=== PATIENT | male | born 1970 | race Caucasian/White ===

== ENCOUNTER 2016-05-21 19:54 | Emergency (ER) | payer OTHER ==
[~2016-05-21] VITALS: Ht 180.3 cm; Wt 105.0 kg
[~2016-05-21 19:54] MED LIST: HYDR-3498 PO; IBUP-1542 PO
[2016-05-21 20:07] VITALS: Ht 180.3 cm; Wt 105.0 kg
[2016-05-21] MEDS ORDERED: AMO500 PO (21:10)
--- NOTE | 2016-05-21 21:13 | ERD ---
ER Documentation Chief Complaint Date/Time DATE: 05/21/16 TIME: 21:11 Chief Complaint left ear pain and headache x 3 days HPI Patient presents with right-sided ear pain that he has had for 1 week. Denies fever. States he feels like the ear is blocked and a fullness. He has not taken any medications. He recently recovered from upper respiratory infection last week so he thought his ears would get better however he continues to have ear pain. No bleeding or drainage from the ear. No cough. ROS All systems reviewed and are negative except as per history of present illness. Medications Home Meds Active Scripts Amoxicillin* (Amoxicillin*) 500 Mg Cap, 500 MG PO BID for 7 Days, CAP Prov:RADHA MCMULLEN PA-C 05/21/16 Ibuprofen* (Motrin*) 600 Mg Tab, 600 MG PO Q6, #30 TAB Prov:LEVON MCCLENDON 05/29/15 Hydrocodone Bit-Acetaminophen* ([place]*) 5-325 Mg Tab, 1 TAB PO Q6 Y for PAIN, # 20 TAB Prov:ARIK LAMAR NP 12/21/14 Ibuprofen* (Motrin*) 600 Mg Tab, 600 MG PO Q6H Y for PAIN AND OR ELEVATED TEMP, #20 Prov:BOAZ WELLS MD 11/02/14 Allergies Allergies: Coded Allergies: No Known Allergy (Unverified , 04/02/15) PMhx/Soc History of Surgery: Yes (hernia repair) Anesthesia Reaction: No Hx Neurological Disorder: No Hx Respiratory Disorders: No Hx Cardiac Disorders: No Hx Psychiatric Problems: No Hx Miscellaneous Medical Probl: No Hx Alcohol Use: No Hx Substance Use: No Hx Tobacco Use: No FmHx Family History: No diabetes Physical Exam Vitals Vital Signs Date Time Temp Pulse Resp B/P Pulse Ox O2 Delivery O2 Flow Rate FiO2 05/21/16 20:07 98.0 80 17 149/82 100 Physical Exam General: well developed, well nourished, alert, nontoxic, no distress Head: normocephalic, atraumatic Neck: Supple, nontender, no lymphadenopathy, no midline tenderness Ears: no tenderness over mastoids bilaterally, bilateral tympanic membranes erythematous, no exudates in canal Oropharynx: no tonsilar erythema or edema, uvula midline, no exudates, no kissing tonsils, no drooling Respiratory: Clear to auscaultation bilaterally, speaks in full sentences, no use of accesory muscles or labored breathing, no rales, ronchi, or wheezing Cardiovascular: RRR, No murmurs GI: soft, non tender, non distended, negative murphys sign, negative mcburneys point tenderness, no cva tenderness bilaterally, no rebound or guarding Procedures/MDM 45-year-old male presents with otitis media which was confirmed on physical examination. He is otherwise well-appearing in no distress. I doubt mastoiditis. He is discharged with amoxicillin. Recommended this patient follow up with her primary care doctor within 48 hours or return to the emergency room for any worsening of symptoms. However this time I do believe there is suitable for outpatient management. I answered all their questions and they agreed with the plan and were discharged home. Departure Diagnosis: Primary Impression: Otitis media Condition: Stable Patient Instructions: Otitis Media, Abx Tx (Adult) Additional Instructions: Call your primary care doctor TOMORROW for an appointment during the next 1-2 days.See the doctor sooner or return here if your condition worsens before your appointment time. RADHA MCMULLEN PA-C May 21, 2016 21:13
== END 2016-05-21 21:16 | disposition home or self-care (01) ==
LOC: FTE 19:54
DX: H92.02 Otalgia, left ear (principal); I10 Essential (primary) hypertension
CPT/HCPCS: 99283

== ENCOUNTER 2016-06-06 08:51 | Emergency (ER) | payer OTHER ==
[~2016-06-06] VITALS: Ht 180.3 cm; Wt 102.5 kg
[~2016-06-06 08:51] MED LIST changes: +AMO500 PO
[2016-06-06 08:54] VITALS: Ht 180.3 cm; Wt 102.5 kg
[2016-06-06] MEDS ORDERED: FLUT9.9S NASAL (09:22)
[2016-06-06] MEDS ORDERED: LORA1TAB54 PO (09:22)
--- NOTE | 2016-06-06 09:34 | ERD ---
ER Documentation Chief Complaint Date/Time DATE: 06/06/16 TIME: 09:30 Chief Complaint CAN'T HEAR IN RIGHT EAR, TX FOR INFECTION LAST WEEK HPI This is a 45-year-old male presenting to the emergency room complaining of hearing loss in the right ear. Patient describes it as a fullness and that it is blocked. Patient states that he has been having this for the past few weeks and he was here on May 21, 2016 and given a 10 day. Prescription for amoxicillin. Patient does state that it has improved over time but he still has the symptoms. Patient denies any tinnitus, dizziness, ear pain, ear discharge. He does admit to having symptoms of congestion a few weeks ago ROS All systems reviewed and are negative except as per history of present illness. Medications Home Meds Active Scripts Fluticasone Propionate (Flonase Allergy Relief) 9.9 Ml [place].susp, 1 SPRAY NASAL BID, #1 BOTTLE TO EACH NOSTRIL Prov:TJ EDWARD PA-C 06/06/16 Loratadine/Pseudoephedrine* (Claritin-D* 12 Hr) 5-120 Mg Tab.er.12h, 1 TAB PO Q12, #30 TAB.SA Prov:TJ EDWARD PA-C 06/06/16 Amoxicillin* (Amoxicillin*) 500 Mg Cap, 500 MG PO BID for 7 Days, CAP Prov:RADHA MCMULLEN PA-C 05/21/16 Ibuprofen* (Motrin*) 600 Mg Tab, 600 MG PO Q6, #30 TAB Prov:LEVON MCCLENDON 05/29/15 Hydrocodone Bit-Acetaminophen* ([place]*) 5-325 Mg Tab, 1 TAB PO Q6 Y for PAIN, # 20 TAB Prov:ARIK LAMAR NP 12/21/14 Ibuprofen* (Motrin*) 600 Mg Tab, 600 MG PO Q6H Y for PAIN AND OR ELEVATED TEMP, #20 Prov:BOAZ WELLS MD 11/02/14 Allergies Allergies: Coded Allergies: No Known Allergy (Unverified , 04/02/15) PMhx/Soc Medical and Surgical Hx: pt denies Medical Hx, pt denies Surgical Hx History of Surgery: Yes (hernia repair) Anesthesia Reaction: No Hx Neurological Disorder: No Hx Respiratory Disorders: No Hx Cardiac Disorders: Yes (htn) Hx Psychiatric Problems: No Hx Miscellaneous Medical Probl: No Hx Alcohol Use: No Hx Substance Use: No Hx Tobacco Use: No Physical Exam Vitals Vital Signs Date Time Temp Pulse Resp B/P Pulse Ox O2 Delivery O2 Flow Rate FiO2 06/06/16 08:54 968.0 65 18 138/79 98 Physical Exam GENERAL: well-developed/well-nourished, in no apparent distress, non-toxic appearing HEAD: NC/AT, no swelling noted in frontal or maxillary areas EARS: bilateral tympanic membrane is intact without erythema or effusion NARES: nares patent THROAT: oropharynx non-erythematous without exudates, no tonsil enlargement EYES: Conjunctiva normal NECK: Supple, no lymphadenopathy PULM: CTA bilaterally, no rales, rhonchi, or wheezing heard CV: Normal S1S2, RRR, good capillary refill GI: Soft, non-distended, normal bowel sounds, non-tender BACK: No midline tenderness, no masses EXT No clubbing, cyanosis, or edema NEURO: Alert and Orientated SKIN: Intact, normal turgor PSYCH: Normal mood and mentation Procedures/MDM This is a 45-year-old male presenting to the emergency department for the second time in the past few weeks for clogged with mild hearing loss in the right ear. On examination there was no evidence of otitis media or otitis externa in the ear. He had clear tympanic membranes with good cone of light. This is likely eustachian tube dysfunction, I have considered TMJ, sensorineural hearing loss, ear masses. Patient is suitable to follow-up with his primary care physician to get an referral to see an ENT specialist. Patient is afebrile with stable vital signs. Prescription for Claritin-D and Flonase provided. Discussed return to the ER for not worsening as expected. Patient understands and agrees with this plan Departure Diagnosis: Primary Impression: Eustachian tube dysfunction Additional Impression: Hearing loss Condition: Stable Patient Instructions: Signs of Hearing Loss, Your Hearing Evaluation, Understanding Hearing Loss, Eustachian Tube Obstruction (Child) Additional Instructions: FOLLOW UP WITH YOUR PRIMARY CARE PHYSICIAN TOMORROW.Return to this facility if you are not improving as expected. You will need a referral to see an EAR, NOSE, THROAT physician and hearing evaluation Take all medicines as directed. Return to this facility if you are not improving as expected. TJ EDWARD PA-C Jun 06, 2016 09:34
== END 2016-06-06 10:50 | disposition home or self-care (01) ==
LOC: FTE 08:51
DX: H69.91 Unspecified Eustachian tube disorder, right ear (principal); I10 Essential (primary) hypertension
CPT/HCPCS: 99283

== ENCOUNTER 2016-12-25 08:50 | Emergency (ER) | payer OTHER ==
[~2016-12-25] VITALS: Wt 107.4 kg
[~2016-12-25 08:50] MED LIST changes: -AMO500 PO; +AMOX500C2 PO; +FLUT9.9S NASAL; +LORA1TAB54 PO
--- NOTE | 2016-12-25 10:22 | RADRPT ---
PROCEDURE: RIGHT KNEE X-RAY CLINICAL INDICATION: Knee pain TECHNIQUE: 3 views of the right knee were obtained. COMPARISON: None FINDINGS: There is no evidence of acute fracture or dislocation of the right knee. Bony mineralization and ali gnment are unremarkable. No significant degenerative changes. Joint spaces are preserved. There is n o significant joint effusion. No gross abnormal soft tissue swelling noted at this time. IMPRESSION: 1. Unremarkable right knee. RPTAT: A[facility] Physician Hima Date Time Electronically viewed and signed by Physician Hima on 12/25/2016 10:21 JL/
[2016-12-25] MEDS ORDERED: IBUP800T25 PO (10:26)
--- NOTE | 2016-12-25 10:35 | ERD ---
ER Documentation Chief Complaint Chief Complaint r. knee pain since last week, denies trauma HPI This is a 46-year-old man complaining of pain in his right knee, medial aspect. The pain is a when running or twisting in certain directions. Is been no full direct trauma, he plays a lot of golf and runs frequently. Says that it has been there for about 7 days now the pain is sharp and worse with movement and better with rest. He has no swelling in the knee or calf ROS All systems reviewed and are negative except as per history of present illness. Medications Home Meds Active Scripts Ibuprofen* (Motrin*) 800 Mg Tab, 800 MG PO Q6H Y for PAIN AND OR ELEVATED TEMP, #30 TAB Prov:JADE LOWE DO 12/25/16 Fluticasone Propionate (Flonase Allergy Relief) 9.9 Ml [place].susp, 1 SPRAY NASAL BID, #1 BOTTLE TO EACH NOSTRIL Prov:TJ EDWARD PA-C 06/06/16 Loratadine/Pseudoephedrine* (Claritin-D* 12 Hr) 5-120 Mg Tab.er.12h, 1 TAB PO Q12, #30 TAB.SA Prov:TJ EDWARD PA-C 06/06/16 Amoxicillin* (Amoxicillin*) 500 Mg Cap, 500 MG PO BID for 7 Days, CAP Prov:RADHA MCMULLEN PA-C 05/21/16 Ibuprofen* (Motrin*) 600 Mg Tab, 600 MG PO Q6, #30 TAB Prov:LEVON MCCLENDON 05/29/15 Hydrocodone Bit-Acetaminophen* ([place]*) 5-325 Mg Tab, 1 TAB PO Q6 Y for PAIN, # 20 TAB Prov:ARIK LAMAR NP 12/21/14 Ibuprofen* (Motrin*) 600 Mg Tab, 600 MG PO Q6H Y for PAIN AND OR ELEVATED TEMP, #20 Prov:BOAZ WELLS MD 11/02/14 Allergies Allergies: Coded Allergies: No Known Allergy (Unverified , 04/02/15) PMhx/Soc History of Surgery: Yes (hernia repair) Anesthesia Reaction: No Hx Neurological Disorder: No Hx Respiratory Disorders: No Hx Cardiac Disorders: Yes (htn) Hx Psychiatric Problems: No Hx Miscellaneous Medical Probl: No Hx Alcohol Use: No Hx Substance Use: No Hx Tobacco Use: No FmHx Family History: No coronary disease Physical Exam Vitals Vital Signs Date Time Temp Pulse Resp B/P Pulse Ox O2 Delivery O2 Flow Rate FiO2 12/25/16 08:54 97.9 63 20 130/77 98 Physical Exam Const: [Well-developed, well-nourished] Head: Atraumatic, normocephalic Eyes: Normal Conjunctiva, PERRLA, EOMI, normal sclera, no nystagmus ENT: Normal External Ears, Nose and Mouth, moist mucus membranes. Neck: Full range of motion. No meningismus, no lymphadenopathy. Resp: Clear to auscultation bilaterally, no wheezing, rhonchi, rales Cardio: Regular rate and rhythm, no murmurs, S1 S2 present Abd: Soft, non tender x 4, non distended. Normal bowel sounds, no guarding or rebound, no pulsitile abdominal masses or bruits Skin: No petechiae or rashes, no ecchymosis , no maculopapular rash Back: No midline or flank tenderness Ext: No cyanosis, or edema, tender the medial collateral ligament on the right no laxity FROM x 4, normal inspection, neurovascularly intact x 4 Neur: Awake and alert, STR 5/5 x 4, sensation intact x 4, no focal findings, cerebellum intact Psych: Normal Mood and Affect Procedures/MDM PROCEDURE: RIGHT KNEE X-RAY CLINICAL INDICATION: Knee pain TECHNIQUE: 3 views of the right knee were obtained. COMPARISON: None FINDINGS: There is no evidence of acute fracture or dislocation of the right knee. Bony mineralization and alignment are unremarkable. No significant degenerative changes. Joint spaces are preserved. There is no significant joint effusion. No gross abnormal soft tissue swelling noted at this time. IMPRESSION: 1. Unremarkable right knee. RPTAT: A[facility] Physician Hima Date Time Electronically viewed and signed by Physician Hima on 12/25/2016 10:21 JL/ CC: JADE LOWE DO Departure Diagnosis: Primary Impression: Knee MCL sprain Encounter type: initial encounter Laterality: right Qualified Code: S83.411A - Sprain of medial collateral ligament of right knee, initial encounter Condition: Stable Patient Instructions: Knee Sprain: Collateral Ligaments Referrals: HODA PARKS MD, APOSTOLOS A. DO Dec 25, 2016 10:35
== END 2016-12-25 11:03 | disposition home or self-care (01) ==
LOC: FTE 08:50
DX: S83.411A Sprain of medial collateral ligament of right knee, initial encounter (principal); I10 Essential (primary) hypertension; X50.9XXA Other and unspecified overexertion or strenuous movements or postures, initial encounter; Y92.9 Unspecified place or not applicable
CPT/HCPCS: 73562; Z7502

== ENCOUNTER 2017-02-03 08:32 | Emergency (ER) | END 2017-02-03 11:10 | disposition home or self-care (01) ==